=== PATIENT | male | born 2000 | race African-American/Black ===

== ENCOUNTER 2022-03-19 16:51 | Emergency (ER) | payer OTHER, SELFPAY ==
[2022-03-19 16:58] VITALS: BP 146/71; PULSE 113; RESP 18; TEMP 38.6; O2SAT 96
--- NOTE | 2022-03-19 19:31 | ED.URI ---
HPI - URI/Sore Throat General Chief Complaint: Upper Respiratory Infection Stated Complaint: tight chest nausea Time Seen by Provider: 03/19/22 19:32 Source: patient, RN notes reviewed and old records reviewed Mode of arrival: ambulatory Limitations: no limitations History of Present Illness HPI Narrative: 21 year old male who presents to [facility] care with complaints of cough, with tightness in chest associated with cough, nausea, headache, stomach ache, body aches for 2 day duration. Patient reports that he has had some shortness of breath noted wheezing and also stomach pain with feelings of gas today, denies any vomiting. Patient has not had COVID vaccinations or influenza shot. MD elicited complaint: fever, cough and other (myalgia) Onset (ago): day(s) (2) Pain scale (0-10): 4 Treatments prior to arrival: acetaminophen (cold and flu) and other (his mom's inhaler and has taken gas X) Related Data Allergies Allergy/AdvReac Type Severity Reaction Status Date / Time No Known Allergies Allergy Verified 03/19/22 18:36 Review of Systems Review of Systems: CONSTITUTIONAL: Reports malaise, chills, sweats, or fever. EYES: Denies visual changes, redness, or discharge. ENT: Reports rhinorrhea, congestion, sinus pain, no otalgia and sore throat. CARDIOVASCULAR: Denies chest pain, palpitations, or edema. RESPIRATORY: Reports cough.? Reports some tightness in his chest with cough and some dyspnea. GASTROINTESTINAL: Reports abdominal pain, nausea, vomiting, diarrhea SKIN: Denies rash or itching. MUSCULOSKELETAL: Reports myalgia. NEUROLOGIC: Reports headache. All systems reviewed & are unremarkable except as noted in HPI and below PMFSH Comments At time of signature, agree with nursing past medical, surgical, social and family history. There is no relevant family history pertinent to the presenting complaint Exam Narrative: GENERAL: Well-appearing, well-nourished, and in no acute distress. HEAD: Normocephalic EYES: PERRLA, conjunctivae clear ENT: Nares clear, turbinates edematous and erythematous, clear discharge. Mucous membranes moist. TM pearly alvarez with dull light reflex bilaterally; no tragal tenderness. Oropharynx erythematous without lesions. Tonsils not enlarged and without exudate, no drooling, no hoarseness, no trismus, uvula midline. NECK: Supple. No lymphadenopathy CHEST: Scattered wheezing on auscultation, breath sounds equal. Positive for wheezing,no rhonchi, rales, or stridor. No respiratory distress, speaks in full sentences.cough SAO2 96% on room air Abdomen : no sharp pain to abdomen, voices nausea without vomiting, feels gaseous, bowel sounds present in all quadrants. HEART: Regular rate and rhythm. No murmur heard. SKIN: Warm, dry, no rash. NEURO: Alert and oriented x3. PSYCH: Normal mood and affect Course Course Emergency Course: Patient is aware of diagnosis, understands and agrees to treatment plan.? Anticipatory guidance given.? Patient agrees to follow-up as directed and is aware of reasons to seek care at the emergency department. Portions of this record may have been created with voice recognition software Level of Care: Express Care Visit Vital Signs Vital signs: Vital Signs Temperature 38.6 C H 03/19/22 16:58 Pulse Rate 113 H 03/19/22 16:58 Respiratory Rate 18 03/19/22 16:58 Blood Pressure 146/71 H 03/19/22 16:58 Pulse Oximetry 96 03/19/22 16:58 Oxygen Delivery Room Air 03/19/22 16:58 Temperature 38.6 C H 03/19/22 16:58 Pulse Rate 113 H 03/19/22 16:58 Respiratory Rate 18 03/19/22 16:58 Blood Pressure 146/71 H 03/19/22 16:58 Pulse Oximetry 96 03/19/22 16:58 Oxygen Delivery Room Air 03/19/22 16:58 Reviewed MDM - URI/Sore Throat MDM Narrative Medical decision making narrative: Differential diagnosis considered: Sanders virus, strep pharyngitis, allergic rhinitis, upper respiratory tract infection, sinusitis, rhinosinusitis, nasopha
== END 2022-03-19 20:35 | disposition home or self-care (01) ==
PROVIDERS: Emergency Provider Registered Nurse
DX: J10.1 Influenza due to other identified influenza virus with other respiratory manifestations (principal); Z20.822 Contact with and (suspected) exposure to COVID-19
CPT/HCPCS: 87426; 87804; 99213; C9803; G0463